=== PATIENT | female | born 1955 | race African-American/Black ===

== ENCOUNTER 2017-08-03 09:46 | Emergency (ER) | payer OTHER ==
[~2017-08-03] VITALS: Wt 89.7 kg
[2017-08-03 09:51] VITALS: Wt 89.7 kg
[2017-08-03] MEDS ORDERED: ONDANSETRON (ODT) 4 MG TAB ODT STA ×2 (10:45)
[2017-08-03] MEDS ORDERED: ACETAMINOPHEN 500 MG TAB PO STA (10:45)
[2017-08-03] MEDS ORDERED: CEFTRIAXONE 1 GM/50 ML (PMX) 50 ML IVPB STA (11:43)
[2017-08-03] MEDS ORDERED: SODIUM CHLORIDE 0.9% 1L BAG IV* STA (11:43)
[2017-08-03] MEDS ORDERED: AZITHROMYCIN 250 MG TAB PO STA (11:43)
--- NOTE | 2017-08-03 12:59 | RADRPT ---
PROCEDURE: XR Chest. CLINICAL INDICATION: Cough. TECHNIQUE: Single frontal view. COMPARISON: None. FINDINGS: There is left basilar air space disease consistent with atelectasis or pneumonia. The lungs are othe rwise clear. The heart size is normal. There is calcification in the aorta consistent with atherosclerosis. There is no pleural effusion. There is no pneumothorax. IMPRESSION: 1. Left basilar atelectasis or pneumonia. 2. Atherosclerosis. 3. Otherwise unremarkable chest radiograph. RPTAT: QQ .Santos Romo MD, MD Date Time Electronically viewed and signed by .Santos Romo MD, MD on 08/03/2017 12:59 .R/
[2017-08-03] MEDS ORDERED: ACET500C5 PO (13:00)
[2017-08-03] MEDS ORDERED: D-ME473S2 PO (13:00)
[2017-08-03] MEDS ORDERED: LEVO500T72 PO (13:00)
--- NOTE | 2017-08-03 13:07 | ERD ---
ER Documentation Chief Complaint Chief Complaint cough with white phlegm HPI 62-year-old female presents with cough productive mucus for the last week. She feels lethargy as well. Fetus feels possible chills but no measured fevers. Patient is concerned because she has a friend diagnosed with pneumonia. ROS All systems reviewed and are negative except as per history of present illness. Medications Home Meds Active Scripts Levofloxacin* (Levaquin*) 500 Mg Tablet, 500 MG PO DAILY for 7 Days, TAB Prov:LIAM NORTON MD 08/03/17 Dextromethorphan Hb-Promethazine Hcl* (Promethazine DM* Syrup) 473 Ml Syrup, 5 ML PO Q6 Y for COUGH for 5 Days, ML Prov:LIAM NORTON MD 08/03/17 Acetaminophen* (Tylophen*) 500 Mg Capsule, 1 CAP PO Q6H Y for PAIN AND OR ELEVATED TEMP, #15 CAP Prov:LIAM NORTON MD 08/03/17 Allergies Allergies: Coded Allergies: Penicillins (Verified Allergy, Unknown, 08/03/17) PMhx/Soc Medical and Surgical Hx: pt denies Medical Hx, pt denies Surgical Hx Hx Alcohol Use: No Hx Substance Use: No Hx Tobacco Use: No Smoking Status: Never smoker Physical Exam Vitals Vital Signs Date Time Temp Pulse Resp B/P Pulse Ox O2 Delivery O2 Flow Rate FiO2 08/03/17 09:51 99.8 107 20 155/87 97 Physical Exam Const: [] Alert, [id number]. Head: Atraumatic Eyes: Normal Conjunctiva ENT: Normal External Ears, Nose and Mouth. TMs normal oropharynx normal. Neck: Full range of motion..~ No meningismus. Resp: Clear to auscultation bilaterally no appreciable rales or retractions or wheezing. Cardio: Regular rate and rhythm, no murmurs Abd: Soft, non tender, non distended. Normal bowel sounds Skin: No petechiae or rashes Back: No midline or flank tenderness Ext: No cyanosis, or edema Neur: Awake and alert Psych: Normal Mood and Affect Result Diagram: 08/03/17 1145 08/03/17 1145 Results 24 hrs Laboratory Tests Test 08/03/17 11:45 White Blood Count 7.010^3/ul Red Blood Count 3.8610^6/ul Hemoglobin 11.7g/dl Hematocrit 34.9% Mean Corpuscular Volume 90.4fl Mean Corpuscular Hemoglobin 30.3pg Mean Corpuscular Hemoglobin Concent 33.5g/dl Red Cell Distribution Width 12.7% Platelet Count 16593^3/UL Mean Platelet Volume 9.1fl Neutrophils % 69.7% Lymphocytes % 20.7% Monocytes % 7.0% Eosinophils % 1.6% Basophils % 0.3% Nucleated Red Blood Cells % 0.0/100WBC Neutrophils # 4.910^3/ul Lymphocytes # 1.510^3/ul Monocytes # 0.510^3/ul Eosinophils # 0.110^3/ul Basophils # 0.010^3/ul Nucleated Red Blood Cells # 0.010^3/ul Sodium Level 140mmol/L Potassium Level 4.1mmol/L Chloride Level 101mmol/L Carbon Dioxide Level 28mmol/L Anion Gap 15 Blood Urea Nitrogen 10mg/dl Creatinine 0.96mg/dl Glucose Level 110mg/dl Lactic Acid Level 0.9mmol/L Calcium Level 8.5mg/dl Total Bilirubin 0.3mg/dl Direct Bilirubin 0.00mg/dl Indirect Bilirubin 0.3mg/dl Aspartate Amino Transf (AST/SGOT) 26IU/L Alanine Aminotransferase (ALT/SGPT) 33IU/L Alkaline Phosphatase 105IU/L Total Protein 8.0g/dl Albumin 3.9g/dl Globulin 4.10g/dl Albumin/Globulin Ratio 0.95 Current Medications Medications (Trade) Dose Ordered Sig/René Route PRN Reason Start Time Stop Time Status Last Admin Dose Admin Ondansetron HCl (Zofran Odt) 8 mg ONCE STAT ODT 08/03/17 10:45 08/03/17 10:47 DC 08/03/17 10:57 Acetaminophen (Tylenol Tab) 500 mg ONCE STAT PO 08/03/17 10:45 08/03/17 10:47 DC 08/03/17 10:57 Ondansetron HCl (Zofran Odt) 8 mg ONCE STAT ODT 08/03/17 10:45 08/03/17 10:47 DC Sodium Chloride (NS) 2,780 ml BOLUS OVER 2 HOURS STAT IV* 08/03/17 11:43 08/03/17 11:45 DC 08/03/17 12:03 Azithromycin 500 mg 500 mg ONCE STAT PO 08/03/17 11:43 08/03/17 11:45 DC 08/03/17 12:04 Ceftriaxone Sodium (Rocephin) 50 ml @ 100 mls/hr ONCE STAT IVPB 08/03/17 11:43 08/03/17 12:12 DC 08/03/17 12:07 Procedures/MDM Chest X-ray 1V Interpreted by me: Soft Tissue: No acute abnormalities Bones: No acute abnormalities Mediastinum/Cardiac Silhouette/Lungs: Lower lobe infiltrate or consolidation. Impression-left lower lobe infiltrate or pneumonia. He was obtained. Patient was given partial 30 cc/kg saline bolus. Patient was given Rocephin 1 g IV and Zithromax 500 mg p.o. CBC is normal. CMP shows no acute abnormalities. Lactic acid is 0,3. Blood cultures pending. Shows no evidence of hypoxemia or respiratory distress and is comfortable and amatory without shortness of breath or distress. Patient presents with left lower lobe pneumonia without evidence of hypoxemia should be amenable to outpatient treatment. Given penicillin allergy she will be treated with Levaquin, primary care follow-up and return precautions. The patient was stable with no new complaints during the ER course. Clinically, there is no current evidence to suggest meningitis, sepsis, acute abdomen, acute coronary syndrome, pulmonary embolism, or any other emergent condition appearing to require further evaluation or hospitalization. The patient should certainly return for any new or worsening symptoms per the aftercare instructions. They should otherwise follow-up with her primary care doctor for reevaluation this week. Departure Diagnosis: Primary Impression: Pneumonia Pneumonia type: due to unspecified organism Laterality: left Lung location : lower lobe of lung Qualified Code: J18.1 - Pneumonia of left lower lobe due to infectious organism Condition: Stable Patient Instructions: Pneumonia (Adult) Additional Instructions: Check for new or worsening symptoms or primary care doctor. LIAM NORTON MD Aug 03, 2017 13:07
== END 2017-08-03 13:26 | disposition home or self-care (01) ==
LOC: FTE 09:46
DX: J18.1 Lobar pneumonia, unspecified organism (principal)
CPT/HCPCS: 36415; 71010; 80053; 83605; 85025; 87040; 96374; J0696; J7030; Z7502; Z7610